=== PATIENT | male | born 1980 | race Caucasian/White ===

== ENCOUNTER 2024-07-03 06:52 | Emergency (ER) | payer OTHER, MEDICAID ==
[~2024-07-03] VITALS: Ht 175.3 cm; Wt 83.0 kg
[2024-07-03 07:15] VITALS: BP 148/96
== END 2024-07-03 07:18 | disposition home or self-care (01) ==
LOC: ED 06:52
DX: S80.212A Abrasion, left knee, initial encounter (principal); S80.211A Abrasion, right knee, initial encounter; Z02.89 Encounter for other administrative examinations; V29.99XA Rider (driver) (passenger) of other motorcycle injured in unspecified traffic accident, initial encounter
CPT/HCPCS: 99283